=== PATIENT | female | born 1945 | race Caucasian/White ===

== ENCOUNTER 2023-11-26 08:06 | Inpatient (IN) | payer MEDICARE, OTHER ==
[~2023-11-26] VITALS: Ht 162.6 cm; Wt 65.3 kg
[2023-11-26] VITALS (7 sets, daily range): BP systolic 116–153; BP diastolic 64–96; TEMP 97.3–98.2; O2SAT 94–99
[2023-11-26] MEDS ORDERED: CARV3.122 PO (09:18)
[2023-11-26] MEDS ORDERED: LEVO100T9 PO (09:18)
[2023-11-26] MEDS ORDERED: IBUP-23 PO (09:18)
[2023-11-26] MEDS ORDERED: AMLO-213 PO (09:18)
[2023-11-26] MEDS ORDERED: OMEP20TA20 PO (09:18)
[2023-11-26] MEDS ORDERED: METF-440 PO (09:18)
[2023-11-26] MEDS ORDERED: OXYMETAZOLINE HCL NASAL SPRAY 30 ML BOTTLE NS ONE (10:25)
[2023-11-26] MEDS ORDERED: MIDAZOLAM HCL 2 MG/2ML VIAL ONE (10:25)
[2023-11-26] MEDS ORDERED: FENTANYL PF 100MCG/2ML AMPUL ONE (10:25)
[2023-11-26] MEDS ORDERED: FAMOTIDINE/PF INJ 20 MG/2 ML VIAL IV ONE (10:25)
[2023-11-26] MEDS ORDERED: ROCURONIUM BROMIDE 50 MG/5 ML ONE (10:26)
[2023-11-26] MEDS ORDERED: LIDOCAINE 2%-EPI 1:100,000 30 ML VIAL ONE (10:47)
[2023-11-26] MEDS ORDERED: VANCOMYCIN 1 GM VIAL ONE (10:47)
[2023-11-26] MEDS ORDERED: dexaMETHasone SOD PHOSPHATE 1 ML ONE (10:47)
[2023-11-26] MEDS ORDERED: HYDROMORPHONE 1 MG/1 ML DISP.SYRIN IV PRN (13:30)
[2023-11-26] MEDS ORDERED: ACETAMINOPHEN 325 MG TABLET PO PRN (13:30)
[2023-11-26] MEDS ORDERED: IV NS 0.9% 1,000 ML IV PRN (13:30)
[2023-11-26] MEDS ORDERED: ONDANSETRON HCL/PF 4 MG/2 ML VIAL IV PRN (13:30)
[2023-11-26] MEDS ORDERED: DEXTROSE 50%-WATER 50 ML DISP.SYRIN IV PRN (18:30)
[2023-11-26] MEDS: BLOOD SUGAR DIAGNOSTIC 1 EACH STRIP IN SCH ×2 (18:30→23:12)
[2023-11-26] MEDS: VANCOMYCIN 1 GM in IV D5W 250ml IV SCH (22:19)
[2023-11-26] MEDS: INSULIN REGULAR, HUMAN 100 UNIT/ML 3 ML VIAL SQ PRN (23:12)
[2023-11-27] MEDS: BLOOD SUGAR DIAGNOSTIC 1 EACH STRIP IN SCH ×2 (06:31→12:00)
[2023-11-27] MEDS: INSULIN REGULAR, HUMAN 100 UNIT/ML 3 ML VIAL SQ PRN (06:32)
[2023-11-27 07:26] LABS: BASOPHILS % (AUTO) 0.1 % (0.0-2.0); HEMATOCRIT 36 % (33-45); HEMOGLOBIN 11.9 g/dL (11.5-14.8); LYMPHOCYTES % (AUTO) 6.1 % (20.0-44.0); MEAN CORPUSCULAR HEMOGLOBIN 28 PG (26.0-33.0); MEAN CORPUSCULAR HGB CONC 33 g/dl (31.0-36.0); MEAN CORPUSCULAR VOLUME 86 fL (82-100); MONOCYTES # (AUTO) 0.8 K/uL (0.1-1.30); MONOCYTES % (AUTO) 4.5 % (2.0-12.0); NEUTROPHILS % (AUTO) 89.3 % (43.0-81.0); PLATELET COUNT (AUTO) 210 K/uL (150-450); RED BLOOD CELL COUNT(AUTO) 4.19 MIL/uL (4.0-5.2); WHITE BLOOD COUNT (AUTO) 16.8 K/uL (4.3-11.0)
[2023-11-27] MEDS ORDERED: CARVEDILOL 3.125 MG TABLET PO SCH (07:30)
[2023-11-27] MEDS ORDERED: LEVOTHYROXINE SODIUM 100 MCG TABLET PO SCH (07:30)
[2023-11-27 08:00] VITALS: BP 107/49; TEMP 97.9; O2SAT 99
[2023-11-27] MEDS ORDERED: PANTOPRAZOLE 40 MG TABLET.DR PO PRN (08:00)
[2023-11-27 08:08] LABS: CALCIUM, SERUM 9.2 mg/dL (8.5-10.1); CARBON DIOXIDE 26 mmol/L (21-32); CHLORIDE 105 mmol/L (98-107); CREATININE 1.1 mg/dL (0.6-1.3); GLUCOSE 147 mg/dL (74-106); MAGNESIUM 1.9 mg/dL (1.8-2.4); PHOSPHORUS 3.5 mg/dL (2.5-4.9); POTASSIUM 3.9 mmol/L (3.5-5.1); SODIUM SERUM 140 mmol/L (136-145); UREA NITROGEN, BLOOD 21 mg/dL (7-18)
[2023-11-27 08:14] VITALS: BP 107/49
[2023-11-27] MEDS ORDERED: AMLODIPINE BESYLATE 10 MG TABLET PO SCH (09:00)
[2023-11-27] MEDS ORDERED: METFORMIN 500 MG TABLET PO SCH (09:00)
[2023-11-27] MEDS: VANCOMYCIN 1 GM in IV D5W 250ml IV SCH (10:08)
== END 2023-11-27 13:00 | disposition home or self-care (01) | DRG 517 ==
LOC: DS 08:06 → MED 08:09
PROVIDERS: ADMIT Nurse Practitioner Acute Care; ATTEND Nurse Practitioner Acute Care
PROC: 09BR0ZZ Excision of Left Maxillary Sinus, Open Approach (ICD-10-PCS; principal; 2023-11-26)
PROC: 0NUL07Z Supplement Left Palatine Bone with Autologous Tissue Substitute, Open Approach (ICD-10-PCS; 2023-11-26)
PROC: 0NSL0ZZ Reposition Left Palatine Bone, Open Approach (ICD-10-PCS; 2023-11-26)
DX: S02.82XA Fracture of other specified skull and facial bones, left side, initial encounter for closed fracture (principal); J32.0 Chronic maxillary sinusitis; E11.65 Type 2 diabetes mellitus with hyperglycemia; E89.0 Postprocedural hypothyroidism; I10 Essential (primary) hypertension; I25.10 Atherosclerotic heart disease of native coronary artery without angina pectoris; M19.90 Unspecified osteoarthritis, unspecified site; Z85.850 Personal history of malignant neoplasm of thyroid; Z87.891 Personal history of nicotine dependence; Z90.710 Acquired absence of both cervix and uterus; X58.XXXA Exposure to other specified factors, initial encounter; Y93.9 Activity, unspecified; Y92.009 Unspecified place in unspecified non-institutional (private) residence as the place of occurrence of the external cause; Z79.84 Long term (current) use of oral hypoglycemic drugs; D16.4 Benign neoplasm of bones of skull and face; M27.49 Other cysts of jaw
CPT/HCPCS: 36415; 80048-TC; 82962-TC; 83735-TC; 84100-TC; 85025-TC; 87081-TC; A4223; C1713; G0378; J0330; J1100; J1815; J2250; J2405; J2704; J3010; J3370; J3490; J7030; J7060; Q4186

== ENCOUNTER 2024-06-02 08:12 | Inpatient (IN) | payer MEDICARE, OTHER ==
[~2024-06-02 08:12] MED LIST: AMLO-213 PO; CARV3.122 PO; IBUP-23 PO; LEVO100T9 PO; METF-440 PO; OMEP20TA20 PO
[2024-06-02] MEDS ORDERED: dexaMETHasone SOD PHOSPHATE 1 ML ONE (08:59)
[2024-06-02] MEDS ORDERED: OXYMETAZOLINE HCL NASAL SPRAY 30 ML BOTTLE NS ONE (09:00)
[2024-06-02] MEDS ORDERED: VANCOMYCIN 1 GM VIAL ONE (09:00)
[2024-06-02] MEDS ORDERED: LIDOCAINE 2%-EPI 1:200,000 20 ML VIAL IJ ONE (09:00)
[2024-06-02] MEDS ORDERED: FENTANYL PF 100MCG/2ML AMPUL ONE (09:22)
[2024-06-02] MEDS ORDERED: LIDOCAINE 2% JEL UROJET 10 ML MM ONE (09:22)
[2024-06-02] MEDS ORDERED: FAMOTIDINE/PF INJ 20 MG/2 ML VIAL IV ONE (09:23)
[2024-06-02] MEDS ORDERED: ROCURONIUM BROMIDE 50 MG/5 ML ONE (09:23)
[2024-06-02] MEDS ORDERED: MIDAZOLAM HCL 2 MG/2ML VIAL ONE (09:23)
[2024-06-02] MEDS ORDERED: LABETALOL HCL IV 100MG VIAL ONE (10:18)
[2024-06-02 12:00] VITALS: BP 141/66; TEMP 97.3; O2SAT 93
[2024-06-02] MEDS ORDERED: ONDANSETRON HCL/PF 4 MG/2 ML VIAL IV PRN (13:30)
[2024-06-02] MEDS ORDERED: IV NS 0.9% 1,000 ML IV PRN (13:30)
[2024-06-02] MEDS ORDERED: ALPR2TAB2 PO (13:48)
[2024-06-02] MEDS ORDERED: LEVO88TA5 PO (13:48)
[2024-06-02] MEDS: HYDROMORPHONE 1 MG/1 ML DISP.SYRIN IV PRN (14:44)
[2024-06-02] MEDS ORDERED: ALPRAZOLAM 1 MG TABLET PO PRN (15:30)
[2024-06-02] MEDS ORDERED: HYDROCODONE/APAP 10/325MG TABLET PO PRN (15:30)
[2024-06-02] MEDS ORDERED: MAG HYDROX/AL HYDROX/SIMETH 30 ML UDC PO PRN (15:30)
[2024-06-02] MEDS ORDERED: MAGNESIUM HYDROXIDE 30 ML UDC PO PRN (15:30)
[2024-06-02] MEDS: ONDANSETRON HCL/PF 4 MG/2 ML VIAL IVP PRN (15:33)
[2024-06-02 16:00] VITALS: BP 116/65; TEMP 97.5; O2SAT 92
[2024-06-02] MEDS: AMLODIPINE BESYLATE 10 MG TABLET PO SCH (16:15)
[2024-06-02] MEDS: CARVEDILOL 3.125 MG TABLET PO SCH (17:22)
[2024-06-02 20:10] VITALS: BP 108/60; TEMP 97.9; O2SAT 94
[2024-06-02] MEDS: VANCOMYCIN 1 GM in IV D5W 250ml IV SCH (21:34)
[2024-06-02] MEDS: ACETAMINOPHEN 325 MG TABLET PO PRN (21:46)
[2024-06-03] MEDS: LEVOTHYROXINE SODIUM 88 MCG TABLET PO SCH (09:00)
== END 2024-06-03 10:00 | disposition home or self-care (01) | DRG 145 ==
LOC: DS 08:12 → MED 12:30
PROVIDERS: ADMIT Nurse Practitioner Acute Care; ATTEND Nurse Practitioner Acute Care
PROC: 0NUR0KZ Supplement Maxilla with Nonautologous Tissue Substitute, Open Approach (ICD-10-PCS; principal; 2024-06-02)
PROC: 0NUR0JZ Supplement Maxilla with Synthetic Substitute, Open Approach (ICD-10-PCS; principal; 2024-06-02)
PROC: 0NBR0ZX Excision of Maxilla, Open Approach, Diagnostic (ICD-10-PCS; principal; 2024-06-02)
PROC: 09BR0ZZ Excision of Left Maxillary Sinus, Open Approach (ICD-10-PCS; principal; 2024-06-02)
DX: S02.40DA Maxillary fracture, left side, initial encounter for closed fracture (principal); J01.00 Acute maxillary sinusitis, unspecified; E11.9 Type 2 diabetes mellitus without complications; E89.0 Postprocedural hypothyroidism; F41.9 Anxiety disorder, unspecified; I10 Essential (primary) hypertension; I25.10 Atherosclerotic heart disease of native coronary artery without angina pectoris; J32.0 Chronic maxillary sinusitis; Z87.891 Personal history of nicotine dependence; Z90.710 Acquired absence of both cervix and uterus; X58.XXXA Exposure to other specified factors, initial encounter; Y93.89 Activity, other specified; Z85.850 Personal history of malignant neoplasm of thyroid; M19.90 Unspecified osteoarthritis, unspecified site
CPT/HCPCS: 71045-TC; 82962-TC; 88305-TC; 88311-TC; 88312-TC; A4223; G0378; J1100; J1170; J2250; J2405; J2704; J2765; J3010; J3370; J3490; J7030; J7040; J7060